=== PATIENT | female | born 1970 ===

== ENCOUNTER 2022-02-09 16:09 | Inpatient (IN) ==
[2022-02-09] MEDS ORDERED: IOPAMIDOL 100 ML BOTTLE IV ONE (16:10)
--- NOTE | 2022-02-09 17:23 | Emergency Department Note ---
HPI <Linda Avitia PA-C - Last Filed: 02/09/22 21:01> General Chief complaint: Abdominal Pain Stated complaint: constipation, LLQ pain Time Seen by Provider: 02/09/22 16:49 Source: patient Mode of arrival: ambulatory Limitations: no limitations History of Present Illness HPI Narrative: Narrative: This is a 51-year-old female who presents to the emergency department complaining of left lower quadrant pain that has been present for over a week. She initially started having pain the week of September 21, this got much worse about a week ago. She describes it as sharp and crampy. The pain is constant. She complains of nausea and dry heaves. Her appetite is decreased. She had a normal bowel movement 4 days ago and has only had small bowel movements since then. She denies any black or bloody stools. She denies urinary frequency, urgency, dysuria. She has been menopausal for 2 years. She is not having vaginal discharge. She did have a virtual appointment with her primary care provider from out of town who prescribed Bentyl and ondansetron. This has not been effective for t reatment of her symptoms. Related Data Home Medications Medication Instructions Recorded Confirmed levothyroxine 150 mcg tablet 150 mcg PO QHS 02/09/22 02/09/22 Allergies Allergy/AdvReac Type Severity Reaction Status Date / Time No Known Drug Allergies Allergy Unverified 02/09/22 16:10 Review of Systems <Linda Avitia PA-C - Last Filed: 02/09/22 21:01> ROS ROS Narrative: Narrative: All systems ED: reviewed and negative except as stated. PFSH <Linda Avitia PA-C - Last Filed: 02/09/22 21:01> Narrative Patient History Narrative: Narrative: Medical/Surgical/Family History All Active Problems (Updated 02/09/22 @ 21:00 by Linda Avitia PA-C) Diverticulitis (Acute) Social History Smoking Status: Never smoker Exam <Linda Avitia PA-C - Last Filed: 02/09/22 21:01> Narrative Narrative: Narrative: General Limitations: no limitations General appearance: Present alert and in no apparent distress Head Head: Present atraumatic and normocephalic ENT ENT: Present mucous membranes moist Respiratory Respiratory: Present normal lung sounds bilaterally Cardiovascular Cardiovascular: Present regular rate and normal heart sounds Adbominal Abdominal: Present soft and other (Left lower quadrant tenderness with rebound tenderness. No guarding.) Extremities Extremities: Present normal inspection; Absent calf tenderness Back Back: Present normal inspection Neurological Neurological: Present alert and oriented X3 Psychiatric Psychiatric: Present normal affect Skin Skin: Present warm (WNL) and dry; Absent rash Course <Linda Avitia PA-C - Last Filed: 02/09/22 21:01> Course Course Narrative: Urine hCG, urine dip, CBC, and CMP were ordered. CT of the abdomen pelvis with IV contrast was ordered. Sepsis considered at 6:12 PM when CBC results were reviewed. At this time lactic acid, blood cultures, and IV fluids 30 ml/kg are ordered. She was treated with morphine for pain and Zofran for nausea. CT scan of the abdomen pelvis shows diverticulosis and diverticulitis with abscess formation. Patient was treated with IV Zosyn. I discussed the patient with Dr. Lomas, the on-call surgeon, who agrees to admit this patient. He did suggest that she be treated with Cipro and Flagyl as well. This was also ordered for the patient. She will be admitted. Vital Signs Vital signs: Vital Signs Temperature 99.4 F H 02/09/22 16:11 Pulse Rate 110 H 02/09/22 16:11 Respiratory Rate 18 02/09/22 16:11 Blood Pressure 149/68 02/09/22 16:11 Pulse Oximetry (%) 97 02/09/22 16:11 Temperature 98.6 F 02/11/22 18:37 Pulse Rate 80 02/11/22 18:37 Respiratory Rate 12 02/11/22 18:37 Blood Pressure 144/74 02/11/22 18:37 Pulse Oximetry (%) 95 02/11/22 18:37 MDM <Linda Avitia PA-C - Last Filed: 02/09/22 21:01> MDM Narrative Medical decision making narrative: Narrative: Lab Data Result diagrams: 02/11/22 05:28 02/11/22 05:28 Labs: Lab Results 02/09/22 02/09/22 02/09/22 Range/Units 17:30 18:15 18:40 WBC 14.7 H (4.5-11.0) K/mcL RBC 4.46 (3.59-5.38) M/mcL Hgb 12.2 (11.2-15.7) g/dL Hct 37.8 (34.1-44.9) % POC Hct 34.0 L (36-48) MCV 84.8 (80.0-100.0) fL MCH 27.4 (26.0-34.0) pg MCHC 32.3 (31.0-36.0) g/dL RDW 12.8 (11.5-14.5) % Plt Count 447 H (140-440) K/mcL MPV 9.8 (7.4-10.4) fL Neut % (Auto) 82.9 H (38.0-78.0) % Lymph % (Auto) 11.0 L (15.5-49.0) % [place] % (Auto) 4.8 (1.0-12.0) % Eos % (Auto) 0.9 (0.0-7.0) % Baso % (Auto) 0.4 (0.0-2.0) % Lymph # (Auto) 1.62 (1.50-4.80) K/mcL [place] # (Auto) 0.70 (0.10-0.90) K/mcL Eos # (Auto) 0.13 (0.00-0.70) K/mcL Baso # (Auto) 0.06 (0.00-0.30) K/mcL Absolute Neutrophils 12.21 H (1.80-8.00) K/mcL VBG Lactic Acid 1.2 (0.5-2.0) mmol/L POC Sodium 137 (133-145) POC Potassium 3.3 (3.3-5.1) POC Chloride 99 (96-108) POC Total CO2 26.0 (22-30) POC BUN 13 (6-20) POC Creatinine 0.8 (0.6-1.2) POC Glucose 117 H (70-105) POC WB Ioniz Calcium 1.05 L (1.16-1.32) ED POC Tests ED POC Tests: HCG POC Results Negative Discharge Plan Patient/Caregiver Discharge Instructions Pt seen by TAXATION CONSULTANT/PA only: Yes Clinical Impression: Diverticulitis Patient Disposition: Xfer As Inpt ([facility]) Condition: Fair Discharge Date/Time: 02/09/22 21:11 Discharge Comment: Transfered to Med/Surg 108 @ 0658
[2022-02-09 18:07] LABS: Basophils # (Auto) 0.06 K/mcL (0.00-0.30); Basophils % (Auto) 0.4 % (0.0-2.0); Eosinophils # (Auto) 0.13 K/mcL (0.00-0.70); Eosinophils % (Auto) 0.9 % (0.0-7.0); Hematocrit 37.8 % (34.1-44.9); Hemoglobin 12.2 g/dL (11.2-15.7); Lymphocytes # (Auto) 1.62 K/mcL (1.50-4.80); Mean Cell Volume 84.8 fL (80.0-100.0); Mean Corpuscular HGB Conc 32.3 g/dL (31.0-36.0); Mean Platelet Volume 9.8 fL (7.4-10.4); Monocytes % (Auto) 4.8 % (1.0-12.0); Neutrophils % (Auto) 82.9 % (38.0-78.0); Platelet Count 447 K/mcL (140-440); RBC 4.46 M/mcL (3.59-5.38); Red Cell Distribution Width 12.8 % (11.5-14.5); WBC 14.7 K/mcL (4.5-11.0)
[2022-02-09] MEDS ORDERED: SODIUM CHLORIDE IV ONE (18:09)
[2022-02-09 18:20] LABS: POC Calcium, Ionized 1.05 (1.16-1.32); POC Creatinine 0.8 (0.6-1.2); POC Potassium 3.3 (3.3-5.1)
--- NOTE | 2022-02-09 18:25 | Cat Scan Report ---
INDICATION: Left lower quadrant pain COMPARISON: None. TECHNIQUE: Axial images were obtained through the abdomen and pelvis. Sagittally and coronally reformatted images. 85 mL Isovue 370 injected intravenously. Oral contrast material was not administered FINDINGS: Lung bases:Negative. No pulmonary parenchymal nodule. No pleural fluid or pericardial fluid Liver:Negative. No focal intrahepatic mass. No focal abnormality. Liver contour is smooth. No evidence for cirrhosis Gallbladder, bilary:There are multiple gallstones. No gallbladder wall thickening or pericholecystic fluid. No dilated bile ducts Spleen:No splenomegaly. Normal enhancement of splenic and portal veins. Pancreas:No pancreatic mass. No peripancreatic abnormality Adrenal glands:Negative Kidneys,ureters,bladder:No solid renal mass. No hydronephrosis. No obstructing or nonobstructing calculi. No hydroureter. No ureteral calculus. No bladder stone. No detectable bladder mass. Gastrointestinal:Sigmoid colon diverticula. Mild diverticulosis in the descending colon. There is extensive sigmoid diverticulitis with pericolonic inflammatory change. Poorly defined diverticular abscess or abscesses. There appear to be 2 contiguous fluid collections which measure 2.5 cm and 2.3 cm. These are contiguous with the uterine fundus and sigmoid colon. Negative small bowel. No mechanical small bowel obstruction. No bowel wall thickening. No focal abnormality. Negative stomach and duodenum. No focal abnormality. Appendix: The appendix is negative Vascular:Negative abdominal aorta. Superior mesenteric artery and celiac trunk are normal. Normal opacification of the inferior mesenteric artery Lymphatic:No retroperitoneal or mesenteric adenopathy Mesentery, peritoneum: Severe diverticulitis and diverticular abscesses in the pelvis. There is no significant pneumoperitoneum. Reproductive:Uterus is mildly retroflexed Musculoskeletal:No lumbar compression fractures. Sacrum and pelvis are negative. No hip fracture. No abdominal wall or inguinal hernia IMPRESSION: 1. Severe sigmoid diverticulitis with diverticular abscesses between the sigmoid colon and uterine fundus 2. Cholelithiasis The exam was performed using radiation dose optimization techniques including, but not limited to, automated exposure control, adjustment of the mA and/or kV according to patient size and use of iterative reconstruction technique. Interpreted and Authenticated by: Neno Parks 02/09/22
[2022-02-09] MEDS ORDERED: ONDANSETRON 4 MG/2 ML VIAL IV ONE (18:35)
[2022-02-09] MEDS ORDERED: morphine 4 MG/ML VIAL IV ONE (18:35)
[2022-02-09] MEDS ORDERED: PIPERACILLIN SODIUM/TAZOBACTAM 4.5 GM in DEXTROSE 5% IN WATER 50 ML IV ONE (18:38)
[2022-02-09] MEDS ORDERED: CIPROFLOXACIN 400 MG/200 ML BAG IV ONE (19:04)
[2022-02-09] MEDS ORDERED: metroNIDAZOLE 500 MG in PREMIX 1 BAG IV ONE (19:04)
[2022-02-09] MEDS ORDERED: ONDANSETRON 4 MG/2 ML VIAL IV PRN (20:36)
--- NOTE | 2022-02-09 21:04 | General Surgery Consult Note ---
HPI Data of Consult Patient: new to practice Consult date: 02/09/22 Requesting physician: Orlando Lomas Primary Care Provider: jose Lomas Consult Narrative Chief complaint: LLQ Pain Reason for consult: Acute Sigmoid Diverticulitis History of present illness: Tiffanie is seeni n consultation today after a roughly 7-10 day history of worsening LLQ pain that began gradually but has intensified in the past few days. She denies vomiting or fevers and has continued to pass gas and stool. She presented to the ER where a CT scan was obtained confirming findings of Acute Sigmoid Diverticulitis without free air or fluid but with several small areas of possible pericolonic abscess. She has not had bloody stools and denies any prior Colonsocopy. Her only prior abdominal surgery was a Lap Diagnostic many years ago for presumed Endometrial Disease. She fully denies any known cardiac or pulmonary conditions and is not currently on any oral anticoagulation. She is accompanied by her . cc:: CC: Constitutional Additional comments: no fevers or weight loss EENT Additional comments: no changes Additional comments: no changes Additional comments: no changes Cardiovascular Additional comments: no chest pain or SOB Respiratory Additional comments: no SOB or cough Gastrointestinal Additional comments: see HPI Genitourinary Additional comments: no hematuria or urinary changes Integumentary Integumentary: Absent lesions Additional comments: no changes Neurological Additional comments: no changes PFSH PFSH All Active Problems (Updated 02/09/22 @ 21:00 by Linda Avitia PA-C) Diverticulitis (Acute) MEDS/ALLERGIES Home Medications and Allergies Home Medications Medication Instructions Recorded Confirmed Type levothyroxine 150 mcg tablet 150 mcg PO QHS 02/09/22 02/09/22 History Allergies Allergy/AdvReac Type Severity Reaction Status Date / Time No Known Drug Allergies Allergy Unverified 02/09/22 16:10 Physical Examination Vital Signs Vital signs: Temp Pulse Resp BP Pulse Ox 99.4 F H 87 18 139/74 99 02/09/22 16:11 02/09/22 20:29 02/09/22 16:11 02/09/22 20:01 02/09/22 20:29 General physical appearance General physical exam: other (looks well and non toxic ) Eyes Eye exam: normal ocular movement; negative icteric ENT ENT exam: normal pinna and normal nares; negative nasal discharge Head Head exam IM: Present atraumatic, normal inspection and normocephalic Neck Neck exam: no masses and no lymphadenopathy Cardiovascular Cardiovascular exam IM: Present normal rate and rhythm Respiratory Respiratory exam: normal respiratory effort Abdomen Abdomen: Present soft (soft and non distended, TTP with localized guarding in the LLQ, obese, remainder of abdominal exam is benign ); Absent distended Genitourinary Genitourinary (Female): Present other (no CVA tenderness ) Integumentary Integumentary: Present other (normal appearing intact skin ) Neurologic Neurologic: Present other (grossly normal intact, fully alert and oriented ) Psychiatric Psychiatric: Present oriented to time, oriented to person and oriented to place Results Labs Result diagrams: 02/09/22 17:30 Labs: Abnormal lab results 02/09/22 02/09/22 Range/Units 17:30 18:15 WBC 14.7 H (4.5-11.0) K/mcL POC Hct 34.0 L (36-48) Plt Count 447 H (140-440) K/mcL Neut % (Auto) 82.9 H (38.0-78.0) % Lymph % (Auto) 11.0 L (15.5-49.0) % Absolute Neutrophils 12.21 H (1.80-8.00) K/mcL POC Glucose 117 H (70-105) POC WB Ioniz Calcium 1.05 L (1.16-1.32) All other labs normal. A/P Narrative A/P Narrative: Acute Sigmoid Diverticulitis Clinical findings are well localized to the LLQ and she seems non toxic. Recommend Conservative Non-Operative Mgmt with IV fluids, IV ABs and Clear L iquids only for now Issues discussed at length including possible need for emergent operative inte rvention if conservative mgmt fails, potential need for drainage procedures, prolonged hospitalization and other issues as well She is agreeable to admission and we will go ahead with the discussed plan Time Spent With Patient Time: Total time spent is greater than 50% in coordination of care (as documented) at patient's floor/unit and/or counseling patient:
[2022-02-09] MEDS: metroNIDAZOLE 500 MG in PREMIX 1 BAG IV SCH (21:21)
[2022-02-09] MEDS: CIPROFLOXACIN 400 MG/200 ML BAG IV SCH (21:39)
[2022-02-09] MEDS: 0.9 % SODIUM CHLORIDE 10 ML SYRINGE IV SCH (21:39)
[2022-02-09] MEDS: PROMETHAZINE 25 MG/ML VIAL IV PRN (21:55)
[2022-02-09] MEDS: HYDROmorphone 0.5 MG/0.5 ML SYRINGE IV PRN (21:56)
[2022-02-09] MEDS: DEXTROSE 5%-LR 1,000 ML IV SCH (21:57)
[2022-02-09] MEDS ORDERED: PROMETHAZINE 25 MG/ML VIAL ONE (21:58)
[2022-02-10] MEDS: HYDROmorphone 0.5 MG/0.5 ML SYRINGE IV PRN ×5 (03:03→20:53)
[2022-02-10] MEDS: metroNIDAZOLE 500 MG in PREMIX 1 BAG IV SCH ×3 (05:46→22:06)
[2022-02-10] MEDS: 0.9 % SODIUM CHLORIDE 10 ML SYRINGE IV SCH ×3 (05:46→23:09)
[2022-02-10] MEDS ORDERED: metroNIDAZOLE 500 MG/100 ML BAG IV ONE (05:51)
[2022-02-10] MEDS: DEXTROSE 5%-LR 1,000 ML IV SCH ×3 (07:20→20:52)
[2022-02-10 07:55] LABS: Hemoglobin 10.4 g/dL (11.2-15.7); Mean Cell Volume 85.7 fL (80.0-100.0); Mean Corpuscular HGB Conc 31.5 g/dL (31.0-36.0); Mean Platelet Volume 9.8 fL (7.4-10.4); Platelet Count 378 K/mcL (140-440); RBC 3.85 M/mcL (3.59-5.38); WBC 12.6 K/mcL (4.5-11.0)
[2022-02-10 08:04] LABS: Blood Urea Nitrogen 8 mg/dL (6-20); Calcium 7.9 mg/dL (8.6-10.4); Carbon Dioxide 22 mmol/L (22-30); Chloride 100 mmol/L (96-108); Glomerular Filtration Rate 85; Glucose 98 mg/dL (70-105)
[2022-02-10] MEDS: CIPROFLOXACIN 400 MG/200 ML BAG IV SCH ×2 (08:34→20:58)
[2022-02-10] MEDS: PROMETHAZINE 25 MG/ML VIAL IV PRN ×2 (08:34→23:20)
--- NOTE | 2022-02-10 10:44 | General Surgery Progress Note ---
SUBJECTIVE Subjective Patient information: Note initiated : 02/10/22 at 10:41 am Service Date, if different from initiated Date: [] Patient: a 51 y/o F admitted on 02/09/22 for constipation, LLQ pain. Chief Complaint: [HD#2 Sigmoid Diverticulitis] She feels ok this am, not worse but not improved per her history although she does admit to some emesis and dry heaving through the night - denies any flatus over night as well Constitutional Vitals: Vital Signs Temp Pulse Resp BP Pulse Ox 99.2 F H 86 20 118/67 97 02/10/22 07:38 02/10/22 07:38 02/10/22 07:38 02/10/22 07:38 02/10/22 07:38 Period Temp Pulse Resp BP Sys/Obrien Pulse Ox Last 24 Hr 98.6 F-99.7 F 81-110 18-22 110-151/66-89 92-100 Intake and Output 02/09/22 02/10/22 02/10/22 21:59 05:59 13:59 Intake Total 1920 1130 100 Output Total 250 400 Balance 1670 1130 -300 Weight 235 lb 6.4 oz Intake & Output: Intake & Output 02/09/22 02/10/22 02/10/22 21:59 05:59 13:59 Intake Total 1920 1130 100 Output Total 250 400 Balance 1670 1130 -300 Weight 235 lb 6.4 oz Intake: IV 1920 780 100 Sodium Chloride 0.9% 1,570 ml @ 1570 3140 mls/hr IV .Q30M [facility] Rx#: [id number] Dextrose 5%-Lactated Ringers 1, 780 0 000 ml @ 100 mls/hr IV .Q10H [facility] Rx#:[id number] Zosyn 4.5 gm In Dextrose 5% in 50 Water 50 ml @ 100 mls/hr IV ONCE [facility] Rx#:[id number] Flagyl 500 mg In Premix 1 Bag @ 100 100 100 mls/hr IV Q8H [facility] Rx#: [id number] Oral 350 Output: Void Amount 150 300 Emesis 100 100 Other: Urine Appearance Clear Clear Urine Color Dark Yellow Dark Yellow # Voids 1 # Bowel Movements 0 # of times incontinent of 0 Bowels # Emeses 1 Exam: awake, fully conversant, non toxic Respiratory Additional comments: non labored, normal effort Cardiovascular Cardiovascular exam: Present RRR GI/Abdominal Additional comments: soft, focally tender, obese, non tender elsewhere Extremities Exam Additional comments: well perfused A/P Assessment and plan (1) Diverticulitis: Assessment and plan: Acute Sigmoid Diverticulitis Seems clinically stable - WBC decreased with only mild temps Will check plain films to assure no SBO Will likely switch to Meropenem if not more substantially improved in the next 24 hours or so Status: Acute Time Spent With Patient Time: Total time spent is greater than 50% in coordination of care (as documented) at patient's floor/unit and/or counseling patient:
--- NOTE | 2022-02-10 10:55 | XRay Report ---
INDICATION: eval for SBO TECHNIQUE: Supine and upright abdomen. COMPARISON: CT scan dated 02/09/2022 FINDINGS:Bowel gas pattern is unremarkable and nonspecific. No dilated gas-filled small bowel. No evidence for mechanical small bowel obstruction. No pneumoperitoneum. No biliary or portal venous gas. No pneumatosis. IMPRESSION: Nonspecific and nonobstructive bowel gas pattern Interpreted and Authenticated by: Neno Parks 02/10/22
[2022-02-11] MEDS: HYDROmorphone 0.5 MG/0.5 ML SYRINGE IV PRN ×5 (01:24→21:34)
[2022-02-11] MEDS: DEXTROSE 5%-LR 1,000 ML IV SCH ×5 (04:40→20:53)
[2022-02-11] MEDS: 0.9 % SODIUM CHLORIDE 10 ML SYRINGE IV SCH ×3 (04:40→21:40)
[2022-02-11] MEDS: metroNIDAZOLE 500 MG in PREMIX 1 BAG IV SCH (06:24)
[2022-02-11 06:50] LABS: Hematocrit 31.7 % (34.1-44.9); Mean Cell Volume 85.7 fL (80.0-100.0); Mean Corpuscular HGB Conc 31.5 g/dL (31.0-36.0); Platelet Count 379 K/mcL (140-440); Red Cell Distribution Width 12.7 % (11.5-14.5); WBC 11.6 K/mcL (4.5-11.0)
[2022-02-11 09:32] LABS: Blood Urea Nitrogen 5 mg/dL (6-20); Calcium 8.1 mg/dL (8.6-10.4); Carbon Dioxide 24 mmol/L (22-30); Chloride 97 mmol/L (96-108); Glomerular Filtration Rate 85; Glucose 124 mg/dL (70-105)
--- NOTE | 2022-02-11 09:46 | General Surgery Progress Note ---
SUBJECTIVE Subjective Patient information: Note initiated : 02/11/22 at 9:39 am Service Date, if different from initiated Date: [] Patient: a 51 y/o F admitted on 02/09/22 for constipation, LLQ pain. Chief Complaint: [HD#3 Acute Sigmoid Diverticulitis] Less pain and feels better overall but still has some significant localized discomfort. Passing gas and stool. Some nausea persists. Low grade temps overnight. Constitutional Vitals: Vital Signs Temp Pulse Resp BP Pulse Ox 97.8 F 86 20 113/64 94 02/11/22 07:13 02/11/22 07:13 02/11/22 07:13 02/11/22 07:13 02/11/22 07:13 Period Temp Pulse Resp BP Sys/Obrien Pulse Ox Last 24 Hr 97.8 F-100.9 F 84-94 20-20 105-122/61-73 93-96 Intake and Output 02/10/22 02/11/22 02/11/22 21:59 05:59 13:59 Intake Total 1300 1275 Output Total 1600 1400 250 Balance -300 -125 -250 Weight 218 lb 14.4 oz 216 lb 3.2 oz Intake & Output: Intake & Output 02/10/22 02/11/22 02/11/22 21:59 05:59 13:59 Intake Total 1300 1275 Output Total 1600 1400 250 Balance -300 -125 -250 Weight 218 lb 14.4 oz 216 lb 3.2 oz Intake: IV 1100 1275 Dextrose 5%-Lactated Ringers 1, 1000 975 000 ml @ 125 mls/hr IV .Q8H [facility] Rx#:[id number] Flagyl 500 mg In Premix 1 Bag @ 100 100 100 mls/hr IV Q8H [facility] Rx#: [id number] Oral 200 0 Output: Void Amount 1600 1400 250 Other: Urine Appearance Clear Clear Clear Urine Color Dark Yellow Dark Yellow Pale Urine Odor Normal Normal Stool Size Small Moderate Stool Color Brown Stool Consistency Soft # Bowel Movements 1 Exam: Non toxic, no distress Respiratory Respiratory exam: Present normal respiratory exam Additional comments: non labored, normal effort Cardiovascular Cardiovascular exam: Present normal rate and rhythm GI/Abdominal Additional comments: localized tenderness in the LLQ, diffusely soft and non tender Extremities Exam Additional comments: well perfused A/P Assessment and plan (1) Diverticulitis: Assessment and plan: Acute Sigmoid Diverticulitis Overall she looks better but still having some low grade temps and remains somewhat tender - will add Meropenem, stop the Flagyl and continue Cipro for now Clears only for now Increase activity with more time OOB and more ambulatory time as well Will replace K+ as well Status: Acute Time Spent With Patient Time: Total time spent is greater than 50% in coordination of care (as documented) at patient's floor/unit and/or counseling patient:
[2022-02-11] MEDS: CIPROFLOXACIN 400 MG/200 ML BAG IV SCH ×2 (09:48→21:32)
[2022-02-11] MEDS ORDERED: POTASSIUM CHLORIDE 20 MEQ in DEXTROSE 5% IN WATER 250 ML IV SCH ×2 (09:50→11:45)
[2022-02-11] MEDS: MEROPENEM 0.5 GM in 0.9 % SODIUM CHLORIDE 50 ML IV SCH ×3 (12:57→18:12)
[2022-02-11] MEDS: PROMETHAZINE 25 MG/ML VIAL IV PRN (16:06)
[2022-02-11] MEDS: LEVOTHYROXINE 150 MCG TABLET PO SCH (21:31)
[2022-02-12] MEDS: MEROPENEM 0.5 GM in 0.9 % SODIUM CHLORIDE 50 ML IV SCH ×5 (00:25→23:25)
[2022-02-12] MEDS: HYDROmorphone 0.5 MG/0.5 ML SYRINGE IV PRN ×5 (03:53→20:55)
[2022-02-12] MEDS: DEXTROSE 5%-LR 1,000 ML IV SCH ×2 (04:55→20:55)
[2022-02-12] MEDS: 0.9 % SODIUM CHLORIDE 10 ML SYRINGE IV SCH ×3 (05:58→20:56)
[2022-02-12 06:36] LABS: Hematocrit 32.1 % (34.1-44.9); Hemoglobin 10.3 g/dL (11.2-15.7); Mean Cell Volume 85.4 fL (80.0-100.0); Mean Corpuscular HGB Conc 32.1 g/dL (31.0-36.0); Platelet Count 396 K/mcL (140-440); RBC 3.76 M/mcL (3.59-5.38); Red Cell Distribution Width 12.6 % (11.5-14.5); WBC 9.5 K/mcL (4.5-11.0)
[2022-02-12 06:58] LABS: Blood Urea Nitrogen 5 mg/dL (6-20); Calcium 8.2 mg/dL (8.6-10.4); Carbon Dioxide 26 mmol/L (22-30); Chloride 100 mmol/L (96-108); Glomerular Filtration Rate 105; Glucose 130 mg/dL (70-105)
[2022-02-12] MEDS: CIPROFLOXACIN 400 MG/200 ML BAG IV SCH ×2 (08:36→20:55)
--- NOTE | 2022-02-12 09:59 | General Surgery Progress Note ---
SUBJECTIVE Subjective Patient information: Note initiated : 02/12/22 at 9:56 am Service Date, if different from initiated Date: [] Patient: Amber a 51 y/o F admitted on 02/09/22 for constipation, LLQ pain. Chief Complaint: [] She looks and feels much better, having bowel function and abdominal pain much improved Constitutional Vitals: Vital Signs Temp Pulse Resp BP Pulse Ox 96.9 F L 73 14 113/69 96 02/12/22 08:00 02/12/22 08:00 02/12/22 08:00 02/12/22 08:00 02/12/22 08:00 Period Temp Pulse Resp BP Sys/Obrien Pulse Ox Last 24 Hr 96.9 F-98.9 F 73-81 12-20 105-144/64-74 95-98 Intake and Output 02/11/22 02/12/22 02/12/22 21:59 05:59 13:59 Intake Total 1489 550 550 Output Total 350 750 850 Balance 1139 -200 -300 Weight 212 lb 4.8 oz Intake & Output: Intake & Output 02/11/22 02/12/22 02/12/22 21:59 05:59 13:59 Intake Total 1489 550 550 Output Total 350 750 850 Balance 1139 -200 -300 Weight 212 lb 4.8 oz Intake: IV 689 250 50 Dextrose 5%-Lactated Ringers 1, 329 000 ml @ 75 mls/hr IV .[id number] [facility] Rx#:[id number] Merrem 0.5 gm In Sodium 100 50 50 Chloride 0.9% 50 ml @ 100 mls/ hr IV Q6H [facility] Rx#:[id number] Potassium Chloride 20 Meq In 260 Dextrose 5% in Water 250 ml @ 130 mls/hr IV 1145 [facility] Rx#: [id number] Oral 800 300 500 Output: Void Amount 350 750 850 Other: Meal Dinner Breakfast Percent of Meal Consumed 25% 75% Feeding Ability Independent Independent Urine Appearance Clear Clear Urine Color Bright Yellow Bright Yellow Light Margret Urine Odor Normal Stool Size Small Large Stool Color Brown Brown Stool Consistency Loose Soft Loose # Voids 1 # Bowel Movements 1 1 Exam: Looks well, non toxic Respiratory Respiratory exam: Present normal respiratory exam Cardiovascular Cardiovascular exam: Present normal rate and rhythm GI/Abdominal Additional comments: soft and non distended, focal mild LLQ tenderness A/P Assessment and plan (1) Diverticulitis: Assessment and plan: Improving Acute Sigmoid Diverticulitis Continue current IV ABs Advance Diet Increase activity Status: Acute Time Spent With Patient Time: Total time spent is greater than 50% in coordination of care (as documented) at patient's floor/unit and/or counseling patient:
[2022-02-12] MEDS: LEVOTHYROXINE 150 MCG TABLET PO SCH (20:55)
[2022-02-13] MEDS: 0.9 % SODIUM CHLORIDE 10 ML SYRINGE IV SCH ×3 (04:03→22:48)
[2022-02-13] MEDS: MEROPENEM 0.5 GM in 0.9 % SODIUM CHLORIDE 50 ML IV SCH ×3 (05:05→17:21)
[2022-02-13 07:49] LABS: Blood Urea Nitrogen 4 mg/dL (6-20); Calcium 8.5 mg/dL (8.6-10.4); Carbon Dioxide 26 mmol/L (22-30); Chloride 100 mmol/L (96-108); Glomerular Filtration Rate 105; Glucose 117 mg/dL (70-105)
--- NOTE | 2022-02-13 09:42 | General Surgery Progress Note ---
SUBJECTIVE Subjective Patient information: Note initiated : 02/13/22 at 9:38 am Service Date, if different from initiated Date: [] Patient: a 51 y/o F admitted on 02/09/22 for constipation, LLQ pain. Chief Complaint: [] Feels much improved this am, passing gas and stool, pain far less, feels ready for advanced diet Constitutional Vitals: Vital Signs Temp Pulse Resp BP Pulse Ox 97.9 F 71 17 119/81 97 02/13/22 07:20 02/13/22 07:20 02/13/22 07:20 02/13/22 07:20 02/13/22 07:20 Period Temp Pulse Resp BP Sys/Obrien Pulse Ox Last 24 Hr 97.2 F-98.4 F 71-78 14-18 116-129/71-81 96-99 Intake and Output 02/12/22 02/13/22 02/13/22 21:59 05:59 13:59 Intake Total 1650 500 Output Total 1500 1200 Balance 150 -700 Weight 209 lb 4.8 oz Intake & Output: Intake & Output 02/12/22 02/13/22 02/13/22 21:59 05:59 13:59 Intake Total 1650 500 Output Total 1500 1200 Balance 150 -700 Weight 209 lb 4.8 oz Intake: IV 250 100 Merrem 0.5 gm In Sodium 50 100 Chloride 0.9% 50 ml @ 100 mls/ hr IV Q6H [facility] Rx#:[id number] Oral 400 400 GI Tube Flush 1000 Output: Urine Catheter Amount 850 Void Amount 650 1200 Other: Urine Appearance Clear Urine Color Pale Dark Yellow Urine Odor Normal Stool Size Small Stool Color Brown Stool Consistency Soft Formed # Voids 1 # Bowel Movements 2 General appearance: no acute distress Exam: she looks well Respiratory Respiratory exam: Present normal respiratory exam Additional comments: non labored Cardiovascular Cardiovascular exam: Present normal rate and rhythm and RRR GI/Abdominal Additional comments: soft and non tender, non distended Extremities Exam Additional comments: well perfused A/P Assessment and plan (1) Diverticulitis: Assessment and plan: Resolving Acute Sigmoid Diverticulitis Advance Diet Increase activity Continue IV ABs Status: Acute Time Spent With Patient Time: Total time spent is greater than 50% in coordination of care (as documented) at patient's floor/unit and/or counseling patient:
[2022-02-13] MEDS ORDERED: POTASSIUM CHLORIDE 20 MEQ TABLET PO ONE (09:43)
[2022-02-13] MEDS: DEXTROSE 5%-LR 1,000 ML IV SCH (10:05)
[2022-02-13] MEDS: HYDROcodone/APAP 5/325MG TABLET PO PRN (10:11)
[2022-02-13] MEDS: CIPROFLOXACIN 400 MG/200 ML BAG IV SCH (10:11)
[2022-02-13] MEDS: LEVOTHYROXINE 150 MCG TABLET PO SCH (20:47)
[2022-02-13] MEDS: CIPROFLOXACIN 500 MG TABLET PO SCH (23:18)
[2022-02-13] MEDS: AMOXICILLIN/POTASSIUM CLAV 875 MG TABLET PO SCH (23:18)
[2022-02-14] MEDS: CIPROFLOXACIN 400 MG/200 ML BAG IV SCH (00:11)
[2022-02-14] MEDS: 0.9 % SODIUM CHLORIDE 10 ML SYRINGE IV SCH (05:10)
[2022-02-14] MEDS: HYDROcodone/APAP 5/325MG TABLET PO PRN (08:39)
[2022-02-14] MEDS: AMOXICILLIN/POTASSIUM CLAV 875 MG TABLET PO SCH (08:40)
[2022-02-14] MEDS: CIPROFLOXACIN 500 MG TABLET PO SCH (08:40)
--- NOTE | 2022-02-14 10:25 | General Surgery Progress Note ---
SUBJECTIVE Subjective Patient information: Note initiated : 02/14/22 at 10:22 am Service Date, if different from initiated Date: [] Patient: Amber a 51 y/o F admitted on 02/09/22 for constipation, LLQ pain. Chief Complaint: [] She looks well, NAD, feels recovered and ok for discharge Constitutional Vitals: Vital Signs Temp Pulse Resp BP Pulse Ox 97.9 F 70 20 110/66 96 02/14/22 08:00 02/14/22 08:00 02/14/22 08:00 02/14/22 08:00 02/14/22 08:00 Period Temp Pulse Resp BP Sys/Obrien Pulse Ox Last 24 Hr 97.2 F-98.2 F 63-87 14-20 110-141/66-81 95-100 Intake and Output 02/13/22 02/14/22 02/14/22 21:59 05:59 13:59 Intake Total 530 1500 Output Total 950 900 Balance -420 600 Weight 209 lb 1.6 oz Intake & Output: Intake & Output 02/13/22 02/14/22 02/14/22 21:59 05:59 13:59 Intake Total 530 1500 Output Total 950 900 Balance -420 600 Weight 209 lb 1.6 oz Intake: IV 50 Merrem 0.5 gm In Sodium 50 Chloride 0.9% 50 ml @ 100 mls/ hr IV Q6H [facility] Rx#:[id number] Oral 480 1500 Output: Void Amount 950 900 Other: Meal Dinner Percent of Meal Consumed 75% Feeding Ability Independent Urine Appearance Cloudy Clear Urine Color Straw Bright Yellow Stool Size Small Small Stool Color Brown Yellow Green Stool Consistency Soft Loose Formed General appearance: no acute distress Exam: looks well, NAD Respiratory Respiratory exam: Present normal respiratory exam Cardiovascular Cardiovascular exam: Present normal rate and rhythm and RRR GI/Abdominal Additional comments: soft and non tender, non distended, no mass Extremities Exam Additional comments: well perfused A/P Assessment and plan (1) Diverticulitis: Assessment and plan: Resolving Acute Sigmoid Diverticulitis Doing Well Home today on oral ABs and clinic follow up with Dr Lomas in 1-2 weeks Issues discussed and reviewed at length with her and her today Status: Acute Time Spent With Patient Time: Total time spent is greater than 50% in coordination of care (as documented) at patient's floor/unit and/or counseling patient:
[2022-02-14] MEDS ORDERED: POTASSIUM CHLORIDE 20 MEQ/15 ML ML PO ONE (10:50)
--- NOTE | 2022-02-18 07:25 | Discharge Summary ---
DATE OF ADMISSION: 02/09/2022 DATE OF DISCHARGE: 02/14/2022 DATE OF DISCHARGE: 02/08/2022 ADMITTING DIAGNOSIS: Acute sigmoid diverticulitis. DISCHARGE DIAGNOSIS: Resolved acute sigmoid diverticulitis. ADMITTING PHYSICIAN: Orlando Lomas MD INDICATIONS FOR ADMISSION/HOSPITAL COURSE: The patient is a 51-year-old female who presented to the Emergency Room with a roughly 10-day history of intermittent left lower abdominal pain and discomfort. On 02/09/2022 she was seen in the Emergency Room and found to be very tender over the left lower quadrant with findings consistent with potential diverticulitis. CT scan was obtained, which confirmed this. We were asked to see her in consultation and admit her. She was admitted to the hospital after initial consultation in the Emergency Room, which revealed localized tenderness with localized peritoneal findings in the left lower abdomen, but no evidence of any diffuse discomfort, abdominal sepsis, or other issue and there were no indications for emergent operative intervention. She was placed on IV antibiotics and initially improved but quite slowly, and she continued to have pain and discomfort. The antibiotics were adjusted and she continued, thereafter, to improve quite a bit more dramatically to the point that by 02/12/2022, 3-4 days into her hospital stay, she was still having bowel function, her fevers had abated and she was feeling much better. Her diet was advanced and by 02/14/2022 she was felt ready for discharge. IN-HOSPITAL PROCEDURE: None. COMPLICATIONS RELATED TO ADMISSION: None apparent. DISPOSITION: Discharged home on oral antibiotics with plans to follow up with Dr. Lomas in Clinic. BW:rj Job ID: [id number] Doc ID: [id number] Orlando Lomas M.D.
== END 2022-02-14 11:36 | disposition home or self-care (01) | DRG 392 ==
LOC: ED 16:09 → MEDSUR 21:13
PROVIDERS: ADMIT Surgery Surgical Critical Care; ATTEND Surgery Surgical Critical Care